=== PATIENT | female | born 1975 | race Caucasian/White ===

== ENCOUNTER 2022-08-16 19:04 | Emergency (ER) | payer MEDICAID ==
[~2022-08-16] VITALS: Ht 149.9 cm; Wt 66.7 kg
[2022-08-16 19:13] VITALS: BP 143/82
--- NOTE | 2022-08-16 19:19 | NUR ---
TO BED 11 FROM TRIAGE
--- NOTE | 2022-08-16 19:27 | NUR ---
Patient resting in bed, A/Ox4, chest and fall symmetrical, no s/s of distress, patient on monitor.
--- NOTE | 2022-08-16 20:42 | NUR ---
ER physician with patient.
[2022-08-16] MEDS ORDERED: KETOROLAC 60 MG/2 ML VIAL IM ONE (20:50)
[2022-08-16] MEDS ORDERED: IBUP-2213 PO (20:51)
[2022-08-16 21:06] VITALS: BP 132/74
== END 2022-08-16 21:08 | disposition home or self-care (01) ==
LOC: MED 19:04
DX: R07.89 Other chest pain (principal); E78.5 Hyperlipidemia, unspecified; Z90.49 Acquired absence of other specified parts of digestive tract
CPT/HCPCS: 93005; 96372; 99283; J1885